=== PATIENT | female | born 1980 | race Caucasian/White ===

== ENCOUNTER 2017-11-20 18:30 | Emergency (ER) | payer OTHER ==
[2017-11-20] MEDS ORDERED: SODIUM CHLORIDE 0.9% 1,000 ML IV STA ×2 (18:50)
[2017-11-20 19:16] LABS: Basophils % (A) 0 %; Eosinophils # (A) 0.3 k/uL (0-0.7); Eosinophils % (A) 3 %; HCT 37.4 % (34.0-46.0); HGB 12.7 gm/dL (11.4-16.0); Lymphocytes # (A) 3.4 k/uL (1.0-4.8); Lymphocytes % (A) 32 %; MCH 27.6 pg (25.0-35.0); MCHC 33.8 g/dL (31.0-37.0); MCV 81.6 fL (80.0-100.0); Mean Platelet Volume 7.1; Monocytes # (A) 0.4 k/uL (0-1.0); Monocytes % (A) 4 %; Neutrophils # (A) 6.5 k/uL (1.3-7.7); Neutrophils % (A) 60 %; Platelet Count 359 k/uL (150-450); RBC 4.58 m/uL (3.80-5.40); RDW 13.9 % (11.5-15.5); WBC 10.7 k/uL (3.8-10.6)
[2017-11-20 19:23] LABS: ALT 19 U/L (9-52); AST 25 U/L (14-36); Albumin 4.3 g/dL (3.5-5.0); Alkaline Phosphatase 100 U/L (38-126); Amylase 57 U/L (30-110); Anion Gap 12 mmol/L; Blood Urea Nitrogen 15 mg/dL (7-17); Calcium 9.7 mg/dL (8.4-10.2); Carbon Dioxide 21 mmol/L (22-30); Chloride 108 mmol/L (98-107); Glucose 90 mg/dL (74-99); Lipase 160 U/L (23-300); Sodium 141 mmol/L (137-145); Total Bilirubin 0.6 mg/dL (0.2-1.3)
--- NOTE | 2017-11-20 19:47 | ED ---
Abdominal Pain HPI - General Chief Complaint: Abdominal Pain Stated Complaint: female gu Time Seen by Provider: 11/20/17 18:41 Source: patient, RN notes reviewed, old records reviewed Mode of arrival: ambulatory Limitations: no limitations - History of Present Illness Initial Comments: 29-year-old female presents return to complain of vaginal bleeding for the past 2 days. She states she's been having slow vaginal bleeding for the past month. Patient states that she has had no fevers or chills. She denies any other major complaints this time. Patient states that she has had some lower abdominal cramping and pain. - Related Data Previous Rx's Medication Instructions Recorded Ferrous Sulfate [Iron] 325 mg PO DAILY #30 tablet 11/20/17 Allergies Allergy/AdvReac Type Severity Reaction Status Date / Time No Known Allergies Allergy Verified 11/20/17 19:30 Review of Systems ROS Statement: Those systems with pertinent positive or pertinent negative responses have been documented in the HPI. ROS Other: All systems not noted in ROS Statement are negative. Past Medical History Past Medical History: No Reported History History of Any Multi-Drug Resistant Organisms: None Reported Past Surgical History: Section, Ear Surgery Past Psychological History: No Psychological Hx Reported Smoking Status: Never smoker Past Alcohol Use History: None Reported Past Drug Use History: None Reported General Exam - General Exam Comments Initial Comments: Pleasant 37 year old female, no distress. Room 10. Alert and oriented. Limitations: no limitations General appearance: alert, in no apparent distress Head exam: Present: atraumatic, normocephalic, normal inspection Eye exam: Present: normal appearance, PERRL, EOMI. Absent: scleral icterus, conjunctival injection, periorbital swelling ENT exam: Present: normal exam, mucous membranes moist Neck exam: Present: normal inspection. Absent: tenderness, meningismus, lymphadenopathy Respiratory exam: Present: normal lung sounds bilaterally. Absent: respiratory distress, wheezes, rales, rhonchi, stridor Cardiovascular Exam: Present: regular rate, normal rhythm, normal heart sounds. Absent: systolic murmur, diastolic murmur, rubs, gallop, clicks GI/Abdominal exam: Present: soft, normal bowel sounds. Absent: distended, tenderness, guarding, rebound, rigid External exam: Present: normal external exam Speculum exam: Present: vaginal bleeding (moderate vaginal bleeding. ). Absent : normal speculum exam By manual exam: Present: normal by manual exam Extremities exam: Present: normal inspection, full ROM, normal capillary refill. Absent: tenderness, pedal edema, joint swelling, calf tenderness Back exam: Present: normal inspection Neurological exam: Present: alert, oriented X3, CN II-XII intact Psychiatric exam: Present: normal affect, normal mood Skin exam: Present: warm, dry, intact, normal color. Absent: rash Course Vital Signs 11/20/17 11/20/17 18:35 21:30 Temperature 98.2 F 97 F L Pulse Rate 83 67 Respiratory 20 18 Rate Blood Pressure 153/92 146/74 O2 Sat by Pulse 98 97 Oximetry Medical Decision Making - Medical Decision Making 37-year-old female complains of that Lower abdominal cramping and heavy vaginal bleeding for the past two days. She's had intermittent bleeding for the past month. At this time she does have a moderate amount of blood on pelvic exam. No significant adnexal tenderness. Patient's lab work shows no signs of significant anemia hemoglobin is stable. Compeleted a do a transvaginal ultrasound which was negative for fibroid or acute process.Discuss the patient needs a follow up with PCP and [employer]. Will start the patient on iron supplements. All questions answered. - Lab Data Result diagrams: 11/20/17 18:55 11/20/17 18:55 Lab Results 11/20/17 11/20/17 11/20/17 Range/Units 18:55 18:55 18:55 WBC (3.8-10.6) k/uL RBC (3.80-5.40) m/uL Hgb (11.4-16.0) gm/dL Hct (34.0-46.0) % MCV (80.0-100.0) fL MCH (25.0-35.0) pg MCHC (31.0-37.0) g/dL RDW (11.5-15.5) % Plt Count (150-450) k/uL Neutrophils % % Lymphocytes % % Monocytes % % Eosinophils % % Basophils % % Neutrophils # (1.3-7.7) k/uL Lymphocytes # (1.0-4.8) k/uL Monocytes # (0-1.0) k/uL Eosinophils # (0-0.7) k/uL Basophils # (0-0.2) k/uL PT 9.6 (9.0-12.0) sec INR 1.0 (<1.2) APTT 22.6 (22.0-30.0) sec Sodium 141 (137-145) mmol/L Potassium 4.0 (3.5-5.1) mmol/L Chloride 108 H (98-107) mmol/L Carbon Dioxide 21 L (22-30) mmol/L Anion Gap 12 mmol/L BUN 15 (7-17) mg/dL Creatinine 0.85 (0.52-1.04) mg/dL Est GFR (CKD-EPI)AfAm >90 (>60 ml/min/1.73 sqM) Est GFR (CKD-EPI)NonAf 88 (>60 ml/min/1.73 sqM) Glucose 90 (74-99) mg/dL Calcium 9.7 (8.4-10.2) mg/dL Total Bilirubin 0.6 (0.2-1.3) mg/dL AST 25 (14-36) U/L ALT 19 (9-52) U/L Alkaline Phosphatase 100 (38-126) U/L Total Protein 8.0 (6.3-8.2) g/dL Albumin 4.3 (3.5-5.0) g/dL Amylase 57 (30-110) U/L Lipase 160 (23-300) U/L Urine Color Urine Appearance (Clear) Urine pH (5.0-8.0) Ur Specific [place] (1.001-1.035) Urine Protein (Negative) Urine Glucose (UA) (Negative) Urine Ketones (Negative) Urine Blood (Negative) Urine Nitrite (Negative) Urine Bilirubin (Negative) Urine Urobilinogen (<2.0) mg/dL Ur Leukocyte Esterase (Negative) Urine RBC (0-5) /hpf Ur Squamous Epith Cells (0-4) /hpf Urine Mucus (None) /hpf Urine HCG, Qual (Not Detectd) Blood Type O Positive Blood Type Recheck No Antibody Screen NEGATIVE Spec Expiration Date 11/23/2017235411/20/17 11/20/17 11/20/17 Range/Units 18:55 20:50 20:50 WBC 10.7 H (3.8-10.6) k/uL RBC 4.58 (3.80-5.40) m/uL Hgb 12.7 (11.4-16.0) gm/dL Hct 37.4 (34.0-46.0) % MCV 81.6 (80.0-100.0) fL MCH 27.6 (25.0-35.0) pg MCHC 33.8 (31.0-37.0) g/dL RDW 13.9 (11.5-15.5) % Plt Count 359 (150-450) k/uL Neutrophils % 60 % Lymphocytes % 32 % Monocytes % 4 % Eosinophils % 3 % Basophils % 0 % Neutrophils # 6.5 (1.3-7.7) k/uL Lymphocytes # 3.4 (1.0-4.8) k/uL Monocytes # 0.4 (0-1.0) k/uL Eosinophils # 0.3 (0-0.7) k/uL Basophils # 0.0 (0-0.2) k/uL PT (9.0-12.0) sec INR (<1.2) APTT (22.0-30.0) sec Sodium (137-145) mmol/L Potassium (3.5-5.1) mmol/L Chloride (98-107) mmol/L Carbon Dioxide (22-30) mmol/L Anion Gap mmol/L BUN (7-17) mg/dL Creatinine (0.52-1.04) mg/dL Est GFR (CKD-EPI)AfAm (>60 ml/min/1.73 sqM) Est GFR (CKD-EPI)NonAf (>60 ml/min/1.73 sqM) Glucose (74-99) mg/dL Calcium (8.4-10.2) mg/dL Total Bilirubin (0.2-1.3) mg/dL AST (14-36) U/L ALT (9-52) U/L Alkaline Phosphatase (38-126) U/L Total Protein (6.3-8.2) g/dL Albumin (3.5-5.0) g/dL Amylase (30-110) U/L Lipase (23-300) U/L Urine Color Light Red Urine Appearance Clear (Clear) Urine pH 5.5 (5.0-8.0) Ur Specific [place] 1.025 (1.001-1.035) Urine Protein Trace H (Negative) Urine Glucose (UA) Negative (Negative) Urine Ketones Negative (Negative) Urine Blood Large H (Negative) Urine Nitrite Negative (Negative) Urine Bilirubin Negative (Negative) Urine Urobilinogen <2.0 (<2.0) mg/dL Ur Leukocyte Esterase Small H (Negative) Urine RBC >182 H (0-5) /hpf Ur Squamous Epith Cells 1 (0-4) /hpf Urine Mucus Rare H (None) /hpf Urine HCG, Qual Not Detected (Not Detectd) Blood Type Blood Type Recheck Antibody Screen Spec Expiration Date - Radiology Data Radiology results: report reviewed Normal transvaginal pelvic sonogram. No adnexal masses or free fluid. No evidence of ovarian torsion noted. Disposition Clinical Impression: Abnormal uterine bleeding Disposition: HOME SELF-CARE Condition: Good Instructions: Dysfunctional Uterine Bleeding (ED) Additional Instructions: Patient is follow-up with primary care physician Dr. Wren. Return to the emergency department if any alarming signs or symptoms occur. Prescriptions: Ferrous Sulfate [Iron] 325 mg PO DAILY #30 tablet Is patient prescribed a controlled substance at d/c from ED?: No Referrals: Kosta Phillips DO [Doctor of Osteopathic Medicine] - 1-2 days None,Stated [Primary Care Provider] - 1-2 days Tim Mcgrath MD [REFERRING] - 1-2 days Time of Disposition: 21:14
[2017-11-20 19:58] LABS: Partial Thromboplastin Time 22.6 sec (22.0-30.0); Prothrombin Time 9.6 sec (9.0-12.0)
--- NOTE | 2017-11-20 20:34 | US ---
EXAMINATION TYPE: US transvaginal DATE OF EXAM: 11/20/2017 COMPARISON: NONE CLINICAL HISTORY: Pain. Abnormal bleeding since September heavy with clots. TECHNIQUE: Transvaginal (TV). EXAM MEASUREMENTS: Uterus: 9.4 x 6.0 x 8.4 cm Endometrial Stripe: 1.2 cm Right Ovary: 3.2 x 2.3 x 2.8 cm Left Ovary: 3.1 x 2.2 x 2.0 cm 1. Uterus: Retroverted wnl 2. Endometrium: wnl 3. Right Ovary: wnl 4. Left Ovary: wnl Spectral, color and waveform doppler imaging shows good arterial and venous flow within the ovaries ; there is no evidence for ovarian torsion. 5. Bilateral Adnexa: wnl 6. Posterior cul-de-sac: wnl IMPRESSION: Normal transvaginal pelvic sonogram. No adnexal mass or free fluid. No evidence of ovaria n torsion.
[2017-11-20 21:04] LABS: Appearance,Urine Clear (Clear); Bilirubin,Urine Negative (Negative); Blood,Urine Large (Negative); Color,Urine Light Red; Glucose,Urine (UA) Negative (Negative); Ketones,Urine Negative (Negative); Leukocyte Esterase,Urine Small (Negative); Mucus,Urine Rare /hpf; Nitrite,Urine Negative (Negative); PH, Urine 5.5 (5.0-8.0); Protein,Urine Trace (Negative); RBC,Urine >182 /hpf (0-5); Specific Gravity,Urine 1.025 (1.001-1.035); Squamous Epithelial Cell,Urine 1 /hpf (0-4); Urobilinogen,Urine <2.0 mg/dL (<2.0)
[2017-11-20 21:33] VITALS: BP 146/74; PULSE 67; RESP 18; TEMP 97
== END 2017-11-20 21:30 | disposition home or self-care (01) ==
LOC: EC 18:30
DX: N93.8 Other specified abnormal uterine and vaginal bleeding (principal); R10.30 Lower abdominal pain, unspecified
CPT/HCPCS: 36415; 76830; 80053; 81001; 81025; 82150; 83690; 85025; 85610; 85730; 86850; 86900; 86901; 93975; 96360; 96361; 99284

== ENCOUNTER → 2018-07-22 | Outpatient (CLI) | payer OTHER ==
--- NOTE | 2018-07-23 08:49 | US ---
EXAMINATION TYPE: US transvaginal DATE OF EXAM: 07/22/2018 COMPARISON: NONE CLINICAL HISTORY: N92.0 MENORRHAGIA. TECHNIQUE: Transvaginal (TV). Date of LMP: 07/08/18 Last LMP lasted 3 weeks. Prior to that is last one lasted months. EXAM MEASUREMENTS: Uterus: 9.2 x 5.1 x 6.8cm Endometrial Stripe: 1.2cm Right Ovary: 2.7 x 2.1 x 1.7cm Left Ovary: 2.3 x 1.9 x 1.5cm 1. Uterus: heterogeneous 2. Endometrium: hyperechoic area in the endometrium measuring 1.2 x 0.5 x 1.3cm and possibly contigu ous second hyperechoic area measuring 0.5 x 0.4 x 0.5cm with a punctate focus of internal vascular fl ow. These are seen at the junction of the endometrium and myometrium although. A slightly impressing on the endometrium such as as on image 18/32. 3. Right Ovary: wnl 4. Left Ovary: wnl 5. Bilateral Adnexa: wnl 6. Posterior cul-de-sac: wnl IMPRESSION: Hyperechoic foci at the junction of the endometrium and myometrium with a punctate focus of internal vascular flow. Sonographic characteristics raise suspicion for an endometrial polyp or ma ss. Alternatively atypical leiomyoma is possible. Further evaluation with sonohysterogram could be pe rformed, pelvic MRI or direct visualization.
== END | disposition home or self-care (01) ==
LOC: RADUSWWP 16:16
PROVIDERS: ATTEND Internal Medicine
DX: N85.8 Other specified noninflammatory disorders of uterus (principal); N92.0 Excessive and frequent menstruation with regular cycle
CPT/HCPCS: 76830

== ENCOUNTER 2020-08-30 19:56 | Observation (INO) | payer OTHER ==
[2020-08-30] MEDS ORDERED: ONDANSETRON 4 MG/2 ML VIAL IVP STA (20:18)
[2020-08-30] MEDS ORDERED: MORPHINE SULFATE 4 MG/ML SYRINGE IV STA (20:18)
[2020-08-30] MEDS ORDERED: SODIUM CHLORIDE 0.9% 1,000 ML IV STA (20:18)
[2020-08-30 21:10] LABS: ALT 296 U/L (4-34); AST 396 U/L (14-36); African American GFR (CKD) >90 (>60 ml/min/1.73 sqM); Albumin 4.3 g/dL (3.5-5.0); Alkaline Phosphatase 239 U/L (38-126); Anion Gap 9 mmol/L; Blood Urea Nitrogen 13 mg/dL (7-17); Calcium 9.3 mg/dL (8.4-10.2); Carbon Dioxide 23 mmol/L (22-30); Chloride 107 mmol/L (98-107); Glucose 133 mg/dL (74-99); Lipase 123 U/L (23-300); Non-African American GFR(CKD) >90 (>60 ml/min/1.73 sqM); Sodium 139 mmol/L (137-145); Total Protein 7.9 g/dL (6.3-8.2)
[2020-08-30 21:13] LABS: Appearance,Urine Cloudy (Clear); Bacteria,Urine Many /hpf; Bilirubin,Urine Negative (Negative); Blood,Urine Small (Negative); Budding Yeast,Urine Occasional /hpf; Calcium Oxalate Crystals,Urine Many /hpf; Color,Urine Yellow; Glucose,Urine (UA) Negative (Negative); Ketones,Urine Negative (Negative); Leukocyte Esterase,Urine Large (Negative); Mucus,Urine Many /hpf; Nitrite,Urine Negative (Negative); PH, Urine 5.5 (5.0-8.0); Protein,Urine Trace (Negative); RBC,Urine 19 /hpf (0-5); Specific Gravity,Urine 1.029 (1.001-1.035); Squamous Epithelial Cell,Urine 18 /hpf (0-4)
[2020-08-30 21:27] LABS: Potassium 4.5 mmol/L (3.5-5.1)
--- NOTE | 2020-08-30 21:54 | US ---
EXAMINATION TYPE: US abdomen limited DATE OF EXAM: 08/30/2020 COMPARISON: NONE CLINICAL HISTORY: RUQ pain, positive gamez's. RUQ pain, positive Gamez's sign. EXAM MEASUREMENTS: Liver Length: 20.16 cm Gallbladder Wall: 0.19 cm CBD: 1.10 cm Right Kidney: 11.4 x 6.2 x 4.9 cm No dilated ducts. Limited due to gas and patient body habitus. Pancreas: Limited visibility of tail. Liver: Appears enlarged and coarse in echotexture. Increased echogenicity. Complex area seen within the right lobe: 2.1 x 2.7 x 1.8 cm. Gallbladder: Appears distended measuring 12.3 cm in length. Multiple hyperechoic foci with posterior shadowing seen within the gallbladder. Evidence for sonographic Gamez's sign: Yes CBD: Appears dilated. Right Kidney: Hyperechoic focus seen within the lower pole: 0.5 x 0.4 x 0.3 cm. Probable column of [place] seen (hypoechoic/isoechoic, indistinct area seen anteriorly). IMPRESSION: Multiple gallstones. No dilated ducts. Intrahepatic bile ducts are not dilated. The common bile duct is large and consistent with gallbladder dysfunction. There is 2.7 cm cyst in the anterior liver.
[2020-08-30] MEDS ORDERED: PIPERACILLIN-TAZOBACTAM 3.375 GM in SODIUM CHLORIDE 0.9% 100 ML IVPB ONE (22:00)
[2020-08-30 22:06] LABS: Basophils % (A) 0 %; Eosinophils # (A) 0.2 k/uL (0-0.7); Eosinophils % (A) 2 %; HCT 34.5 % (34.0-46.0); HGB 11.3 gm/dL (11.4-16.0); Lymphocytes # (A) 1.9 k/uL (1.0-4.8); Lymphocytes % (A) 21 %; MCH 25.3 pg (25.0-35.0); MCHC 32.7 g/dL (31.0-37.0); MCV 77.5 fL (80.0-100.0); Mean Platelet Volume 10.1; Microcytosis Slight; Monocytes # (A) 0.6 k/uL (0-1.0); Monocytes % (A) 6 %; Neutrophils # (A) 6.3 k/uL (1.3-7.7); Neutrophils % (A) 70 %; Platelet Count 369 k/uL (150-450); RBC 4.45 m/uL (3.80-5.40); RDW 15.8 % (11.5-15.5); WBC 9.1 k/uL (3.8-10.6)
--- NOTE | 2020-08-30 22:24 | ED ---
Abdominal Pain HPI - General Chief Complaint: Abdominal Pain Stated Complaint: ABD pain Time Seen by Provider: 08/30/20 20:00 Source: patient Mode of arrival: ambulatory Limitations: no limitations - History of Present Illness Initial Comments: 40 year-old male patient presents to the emergency department today for evaluation of right upper quadrant pain radiating through to her back. Patient states his symptoms started 3 days ago and seemed to be worsening. States she has been nauseated, no vomiting. Denies any fever or chills. Denies any histor y of abdominal surgery. Denies any chest pain or shortness of breath. Denies any pain in the shoulder. Denies any hematuria, dysuria, urinary frequency, urinary urgency. Patient denies any recent rash, cough, shortness of breath, chest pain, numbness, tingling, dizziness, weakness, headache, visual changes, or any other complaints. - Related Data Home Medications Medication Instructions Recorded Confirmed Cephalexin [Keflex] 500 mg PO Q6HR 08/30/20 08/30/20 Ibuprofen [Motrin Ib] 800 mg PO Q8H PRN 08/30/20 08/30/20 Phentermine HCl 37.5 mg PO DAILY 08/30/20 08/30/20 Sertraline HCl [Zoloft] 50 mg PO DAILY 08/30/20 08/30/20 Allergies Allergy/AdvReac Type Severity Reaction Status Date / Time No Known Allergies Allergy Verified 08/30/20 22:01 Review of Systems ROS Statement: Those systems with pertinent positive or pertinent negative responses have been documented in the HPI. ROS Other: All systems not noted in ROS Statement are negative. Past Medical History Past Medical History: No Reported History History of Any Multi-Drug Resistant Organisms: None Reported Past Surgical History: Section, Ear Surgery Past Psychological History: No Psychological Hx Reported Past Alcohol Use History: None Reported Past Drug Use History: None Reported General Exam Limitations: no limitations General appearance: alert, in no apparent distress, other (Is a well-developed, well-nourished adult female patient in no acute distress. Vital signs upon presentation are temperature 97.8F, pulse 69, respirations 18, blood pressure 148/97, pulse ox 98% on room air.) ENT exam: Present: normal exam, normal oropharynx, mucous membranes moist Respiratory exam: Present: normal lung sounds bilaterally. Absent: respiratory distress, wheezes, rales, rhonchi, stridor Cardiovascular Exam: Present: regular rate, normal rhythm, normal heart sounds. Absent: systolic murmur, diastolic murmur, rubs, gallop, clicks GI/Abdominal exam: Present: soft, tenderness (Right upper quadrant tenderness.), normal bowel sounds, other (Positive Gamez's). Absent: distended, guarding, rebound, rigid Neurological exam: Present: alert, oriented X3, CN II-XII intact Psychiatric exam: Present: normal affect, normal mood Skin exam: Present: warm, dry, intact, normal color. Absent: rash Course Vital Signs 08/30/20 08/30/20 08/30/20 19:57 21:49 23:10 Temperature 97.8 F 97.9 F 97.9 F Pulse Rate 69 70 79 Respiratory 18 18 18 Rate Blood Pressure 148/97 151/92 142/88 O2 Sat by Pulse 98 100 100 Oximetry Medical Decision Making - Medical Decision Making 40-year-old female patient presents to the emergency department for right upper quadrant abdominal pain radiating to back. Physical examination did reveal right upper quadrant tenderness with positive Gamez sign. She is afebrile, vital signs. Labs reviewed and does reveal elevated liver enzymes. Elevated alk phos. Ultrasound was obtained and did reveal gallstones, distended g allbladder, dilated common bile duct, and positive Gamez sign. I did discuss the case with the surgeon Dr. Frye who accepted the patient. She is to be nothing by mouth at midnight. [facility] staff at 6:00 in the morning. We will provide nausea medication and pain medication. Antibiotics given. She is agreeable with this plan. Case discussed with my attending Dr. Shay. - Lab Data Result diagrams: 08/30/20 20:34 08/30/20 20:34 Lab Results 08/30/20 08/30/20 08/30/20 Range/Units 20:34 20:34 20:34 WBC 9.1 (3.8-10.6) k/uL RBC 4.45 (3.80-5.40) m/uL Hgb 11.3 L (11.4-16.0) gm/dL Hct 34.5 (34.0-46.0) % MCV 77.5 L (80.0-100.0) fL MCH 25.3 (25.0-35.0) pg MCHC 32.7 (31.0-37.0) g/dL RDW 15.8 H (11.5-15.5) % Plt Count 369 (150-450) k/uL MPV 10.1 Neutrophils % 70 % Lymphocytes % 21 % Monocytes % 6 % Eosinophils % 2 % Basophils % 0 % Neutrophils # 6.3 (1.3-7.7) k/uL Lymphocytes # 1.9 (1.0-4.8) k/uL Monocytes # 0.6 (0-1.0) k/uL Eosinophils # 0.2 (0-0.7) k/uL Basophils # 0.0 (0-0.2) k/uL Microcytosis Slight Sodium 139 (137-145) mmol/L Potassium 4.5 (3.5-5.1) mmol/L Chloride 107 (98-107) mmol/L Carbon Dioxide 23 (22-30) mmol/L Anion Gap 9 mmol/L BUN 13 (7-17) mg/dL Creatinine 0.67 (0.52-1.04) mg/dL Est GFR (CKD-EPI)AfAm >90 (>60 ml/min/1.73 sqM) Est GFR (CKD-EPI)NonAf >90 (>60 ml/min/1.73 sqM) Glucose 133 H (74-99) mg/dL Plasma Lactic Acid Yaakov (0.7-2.0) mmol/L Calcium 9.3 (8.4-10.2) mg/dL Total Bilirubin 1.0 (0.2-1.3) mg/dL AST 396 H (14-36) U/L ALT 296 H (4-34) U/L Alkaline Phosphatase 239 H (38-126) U/L Total Protein 7.9 (6.3-8.2) g/dL Albumin 4.3 (3.5-5.0) g/dL Lipase 123 (23-300) U/L Urine Color Yellow Urine Appearance Cloudy H (Clear) Urine pH 5.5 (5.0-8.0) Ur Specific [place] 1.029 (1.001-1.035) Urine Protein Trace H (Negative) Urine Glucose (UA) Negative (Negative) Urine Ketones Negative (Negative) Urine Blood Small H (Negative) Urine Nitrite Negative (Negative) Urine Bilirubin Negative (Negative) Urine Urobilinogen 6.0 (<2.0) mg/dL Ur Leukocyte Esterase Large H (Negative) Urine RBC 19 H (0-5) /hpf Ur Squamous Epith Cells 18 H (0-4) /hpf Calcium Oxalate Crystal Many H (None) /hpf Urine Bacteria Many H (None) /hpf Urine Mucus Many H (None) /hpf Urine Yeast (Budding) Occasional H (None) /hpf 08/30/20 Range/Units 20:34 WBC (3.8-10.6) k/uL RBC (3.80-5.40) m/uL Hgb (11.4-16.0) gm/dL Hct (34.0-46.0) % MCV (80.0-100.0) fL MCH (25.0-35.0) pg MCHC (31.0-37.0) g/dL RDW (11.5-15.5) % Plt Count (150-450) k/uL MPV Neutrophils % % Lymphocytes % % Monocytes % % Eosinophils % % Basophils % % Neutrophils # (1.3-7.7) k/uL Lymphocytes # (1.0-4.8) k/uL Monocytes # (0-1.0) k/uL Eosinophils # (0-0.7) k/uL Basophils # (0-0.2) k/uL Microcytosis Sodium (137-145) mmol/L Potassium (3.5-5.1) mmol/L Chloride (98-107) mmol/L Carbon Dioxide (22-30) mmol/L Anion Gap mmol/L BUN (7-17) mg/dL Creatinine (0.52-1.04) mg/dL Est GFR (CKD-EPI)AfAm (>60 ml/min/1.73 sqM) Est GFR (CKD-EPI)NonAf (>60 ml/min/1.73 sqM) Glucose (74-99) mg/dL Plasma Lactic Acid Yaakov 0.8 (0.7-2.0) mmol/L Calcium (8.4-10.2) mg/dL Total Bilirubin (0.2-1.3) mg/dL AST (14-36) U/L ALT (4-34) U/L Alkaline Phosphatase (38-126) U/L Total Protein (6.3-8.2) g/dL Albumin (3.5-5.0) g/dL Lipase (23-300) U/L Urine Color Urine Appearance (Clear) Urine pH (5.0-8.0) Ur Specific [place] (1.001-1.035) Urine Protein (Negative) Urine Glucose (UA) (Negative) Urine Ketones (Negative) Urine Blood (Negative) Urine Nitrite (Negative) Urine Bilirubin (Negative) Urine Urobilinogen (<2.0) mg/dL Ur Leukocyte Esterase (Negative) Urine RBC (0-5) /hpf Ur Squamous Epith Cells (0-4) /hpf Calcium Oxalate Crystal (None) /hpf Urine Bacteria (None) /hpf Urine Mucus (None) /hpf Urine Yeast (Budding) (None) /hpf - Radiology Data Radiology results: report reviewed, image reviewed Ultrasound of the right upper quadrant was obtained. Report was reviewed in its entirety. Impression by Dr. Campos shows multiple gallstones. No dilated ducts. Tympanic mild are not dilated. The common bile duct is large and consistent with bladder dysfunction. There is 2.7 cm cyst in the anterior lower. There is positive Gamez's sign. Gallbladder appears dilated and distended measuring 12.3 cm in length. Disposition Clinical Impression: Cholelithiasis, Cholecystitis Disposition: ADMITTED IP TO THIS [facility] Condition: Serious Decision to Admit Reason: Admit from EC Decision Date: 08/30/20 Decision Time: 22:30
[2020-08-30] MEDS ORDERED: MORPHINE SULFATE 4 MG/ML SYRINGE IV PRN (22:26)
[2020-08-30] MEDS ORDERED: NALOXONE 0.4 MG/ML 1 ML VIAL IV PRN (22:26)
[2020-08-30] MEDS ORDERED: ONDANSETRON 4 MG/2 ML VIAL IVP PRN (22:26)
[2020-08-30] MEDS: SODIUM CHLORIDE 0.9% 1,000 ML IV SCH (23:21)
[2020-08-31] MEDS: PIPERACILLIN-TAZOBACTAM 3.375 GM in SODIUM CHLORIDE 0.9% 100 ML IVPB SCH ×3 (06:14→23:31)
[2020-08-31 06:32] LABS: ALT 319 U/L (4-34); AST 479 U/L (14-36); African American GFR (CKD) >90 (>60 ml/min/1.73 sqM); Albumin 3.3 g/dL (3.5-5.0); Alkaline Phosphatase 233 U/L (38-126); Anion Gap 5 mmol/L; Blood Urea Nitrogen 8 mg/dL (7-17); Calcium 8.8 mg/dL (8.4-10.2); Carbon Dioxide 23 mmol/L (22-30); Chloride 111 mmol/L (98-107); Glucose 110 mg/dL (74-99); Non-African American GFR(CKD) >90 (>60 ml/min/1.73 sqM); Potassium 4.5 mmol/L (3.5-5.1); Sodium 139 mmol/L (137-145); Total Bilirubin 1.2 mg/dL (0.2-1.3); Total Protein 6.3 g/dL (6.3-8.2)
--- NOTE | 2020-08-31 09:37 | P.CONS ---
History of Present Illness - Reason for Consult Consult date: 08/31/20 Elevated LFTs Requesting physician: Jagjit Frye - Chief Complaint Right upper quadrant pain - History of Present Illness This is a 40-year-old white female who presented to the emergency department yesterday evening with complaints of right upper quadrant pain radiating to her back. Patient states that the pain started on Saturday in the evening after eating dinner, resolved but then returned the next couple days. Yesterday the pain was very intense, associated with nausea but no vomiting and she presented to the emergency department. The patient denies any past medical history. Denies any previous liver disease or known elevation in her liver enzymes. No previous problems with her gallbladder. On admission labs were WBC 9, hemoglobin 11.3, hematocrit 34.5, platelet count 369,000, total bilirubin 1.0, alkaline phosphatase 239, AST 396, ALT 296. Today's labs there was a slight increase in her LFTs, total bilirubin 1.2, alkaline phosphatase 233, AST 479, ALT 319. As part of her workup she had an ultrasound of the gallbladder showing multiple gallstones, no dilated ducts, intrahepatic duct not dilated. CBD large and consistent with gallbladder dysfunction. CBD measuring 1.10 cm. Liver appears enlarged and coarse echotexture. Increase echogenicity complex area seen within the right lobe measuring 2.1 x 2.7 x 1.8 cm and reported as a 2.7 cm anterior cyst. She states she did recently lose approximately 25 pounds which was intentional. Gen. surgery is on consult plan is for cholecystectomy Review of Systems REVIEW OF SYSTEMS: CARDIOPULMONARY: No chest pain or shortness of breath. Gastrointestinal: Right upper quadrant pain. Nausea, no vomiting. No hematemesis, coffee-ground emesis. No rectal bleeding, or melena. GENITOURINARY: No dysuria or hematuria. MUSCULOSKELETAL: Reports normal range of motion., Joint pain. SKIN: No rashes. No jaundice. ENDOCRINE: No chills, fevers. No excessive weight gain or loss. No polydipsia or polyuria. PSYCHIATRIC: Unremarkable. NEUROLOGY: No change in mental status. Denies dizziness, headache. ENT: Vision unremarkable. CONSTITUTIONAL: No recent weight loss. No fever, chills, night sweats. Past Medical History Past Medical History: No Reported History History of Any Multi-Drug Resistant Organisms: None Reported Past Surgical History: Section, Ear Surgery Additional Past Surgical History / Comment(s): D&C 2019 Past Anesthesia/Blood Transfusion Reactions: No Reported Reaction Past Psychological History: Anxiety Additional Psychological History / Comment(s): ADD Smoking Status: Never smoker Past Alcohol Use History: None Reported Past Drug Use History: None Reported - Past Family History Mother Family Medical History: Thyroid Disorder Additional Family Medical History / Comment(s): Low blood sugar Medications and Allergies Home Medications Medication Instructions Recorded Confirmed Type Cephalexin [Keflex] 500 mg PO Q6HR 08/30/20 08/30/20 History Ibuprofen [Motrin Ib] 800 mg PO Q8H PRN 08/30/20 08/30/20 History Phentermine HCl 37.5 mg PO DAILY 08/30/20 08/30/20 History Sertraline HCl [Zoloft] 50 mg PO DAILY 08/30/20 08/30/20 History Allergies Allergy/AdvReac Type Severity Reaction Status Date / Time No Known Allergies Allergy Verified 08/30/20 22:01 Physical Exam Vitals: Vital Signs Temp Pulse Pulse Resp BP BP Pulse Ox 08/31/20 07:55 97.9 F 74 16 114/74 100 08/31/20 02:00 98.2 F 72 16 125/84 98 08/30/20 23:54 98.2 F 69 18 127/88 99 08/30/20 23:10 97.9 F 79 18 142/88 100 08/30/20 21:49 97.9 F 70 18 151/92 100 08/30/20 19:57 97.8 F 69 18 148/97 98 Intake and Output 08/30/20 08/31/20 08/31/20 22:59 06:59 14:59 Other: # Voids 2 Weight 108.862 kg 108.862 kg General appearance: The patient is alert, oriented, appears in no acute distress. HET: Head is normocephalic and atraumatic. Conjunctiva pink. Sclera anicteric. Neck: Supple without lymphadenopathy. Trachea midline. Heart: S1 S2. Regular rate and rhythm. Lungs: Clear to auscultation. Abdomen: Soft, right upper quadrant tenderness, nondistended with bowel sounds. No guarding or rigidity. Skin: No rashes. No jaundice. Extremities: Normal skin color and turgor. No pedal edema. Neurological: No focal deficits. Alert and oriented 3.. Results CBC & Chem 7: 08/30/20 20:34 08/31/20 05:49 Labs: Abnormal Lab Results - Last 24 Hours (Table) 08/30/20 08/30/20 08/30/20 Range/Units 20:34 20:34 20:34 Hgb 11.3 L (11.4-16.0) gm/dL MCV 77.5 L (80.0-100.0) fL RDW 15.8 H (11.5-15.5) % Chloride (98-107) mmol/L Glucose 133 H (74-99) mg/dL AST 396 H (14-36) U/L ALT 296 H (4-34) U/L Alkaline Phosphatase 239 H (38-126) U/L Albumin (3.5-5.0) g/dL Urine Appearance Cloudy H (Clear) Urine Protein Trace H (Negative) Urine Blood Small H (Negative) Ur Leukocyte Esterase Large H (Negative) Urine RBC 19 H (0-5) /hpf Ur Squamous Epith Cells 18 H (0-4) /hpf Calcium Oxalate Crystal Many H (None) /hpf Urine Bacteria Many H (None) /hpf Urine Mucus Many H (None) /hpf Urine Yeast (Budding) Occasional H (None) /hpf 08/31/20 Range/Units 05:49 Hgb (11.4-16.0) gm/dL MCV (80.0-100.0) fL RDW (11.5-15.5) % Chloride 111 H (98-107) mmol/L Glucose 110 H (74-99) mg/dL AST 479 H (14-36) U/L ALT 319 H (4-34) U/L Alkaline Phosphatase 233 H (38-126) U/L Albumin 3.3 L (3.5-5.0) g/dL Urine Appearance (Clear) Urine Protein (Negative) Urine Blood (Negative) Ur Leukocyte Esterase (Negative) Urine RBC (0-5) /hpf Ur Squamous Epith Cells (0-4) /hpf Calcium Oxalate Crystal (None) /hpf Urine Bacteria (None) /hpf Urine Mucus (None) /hpf Urine Yeast (Budding) (None) /hpf CT scan - abdomen: report reviewed (Multiple gallstones, no dilated ducts, intrahepatic duct not dilated. CBD large and consistent with gallbladder dysfunction. Liver appears enlarged and coarse echotexture. Increase echogenicity, complex area seen within right lobe 2.1 x 2.7 x 1.8 cm reported as a 2.7 cm anterior cyst) Assessment and Plan (1) Elevated LFTs Narrative/Plan: 40-year-old who presented to the emergency department with complaints of right upper quadrant pain starting 4 days ago associated with nausea, no vomiting. Patient denies previous associated symptoms, no prior history of gallbladder disease. As part of her workup in the emergency department. Ultrasound of the gallbladder showing multiple gallstones, no dilated ducts, intrahepatic ducts aren't dilated. CBD large and consistent with gallbladder dysfunction. Also reported was liver appearing enlarged and coarse echotexture. Increase echo [place] complex area seen within the right lobe 2.1 x 2.7 x 1.8 cm. Patient denies any previous knowledge of any underlying liver disease, denies any previous knowledge of elevation of her liver function tests. Does state that she has recently lost 25 pounds, intentionally. On admission total bilirubin 1.0, alkaline phosphatase 239, AST 396, ALT 296, repeat labs today show a mild increase in total bilirubin at 1.2, alkaline phosphatase 233, AST 479, ALT 319. Patient may have underlying liver disease related to fatty liver, also need to consider possible CBD stone/obstruction. Will proceed with MRI/MRCP of the liver. Current Visit: Yes Status: Acute Code(s): R79.89 - OTHER SPECIFIED ABNORMAL FINDINGS OF BLOOD CHEMISTRY SNOMED Code(s): 518577483 (2) Right upper quadrant pain Current Visit: Yes Status: Acute Code(s): R10.11 - RIGHT UPPER QUADRANT PAIN SNOMED Code(s): 849790418 (3) Cholelithiasis Narrative/Plan: Gen. surgery on consult, plan is for cholecystectomy Current Visit: Yes Status: Acute Code(s): K80.20 - CALCULUS OF GALLBLADDER W/O CHOLECYSTITIS W/O OBSTRUCTION SNOMED Code(s): 940424418 Plan: 1. Keep nothing by mouth 2. MRI/MRCP of liver ordered 3. Repeat CMP daily 4. INR ordered for tomorrow 5. Surgical services following patient 6. Further recommendations to follow MRCP findings Thank you for this consultation, we will continue to follow Dr. Armando I agree with the dictator's note, documented as a scribe by Edith Steve.
[2020-08-31] MEDS: PANTOPRAZOLE 40 MG/10 ML VIAL IVP SCH (11:06)
[2020-08-31] MEDS: SODIUM CHLORIDE 0.9% 1,000 ML IV SCH ×2 (11:06→23:29)
--- NOTE | 2020-08-31 11:09 | P.GSHP ---
History of Present Illness H&P Date: 08/31/20 CHIEF COMPLAINT: Abdominal pain HISTORY OF PRESENT ILLNESS: This is a 40-year-old female with past medical history of depression and past surgical history of . She presents to the hospital with complaints of right upper quadrant pain that radiates to her back. She reports that the pain has been intermittent for about 4 days. [place] And she noted an increase in pain after eating chicken that is covered and cheese. Patient has been nauseated having sweats and reports having very severe right upper quadrant pain yesterday and that is what brought her into the hospital. At this time she is not complaining of any pain. She had an abdominal ultrasound completed showing multiple gallstones. No dilated ducts. Intrahepatic bile ducts are not dilated. The common bile duct is large and consistent with gallbladder dysfunction. There is 2.7 cm cyst in the anterior liver. Patient was noted to have elevated LFTs. They continue to increase. GI services on consult and they have ordered an MRCP. PAST MEDICAL HISTORY: See list. PAST SURGICAL HISTORY: See list. MEDICATIONS: See list. ALLERGIES: See list. SOCIAL HISTORY: No illicit drug use. REVIEW OF SYSTEMS: CONSTITUTIONAL: Denies fever or chills. HEENT: Denies blurred vision, vision changes, or eye pain. Denies hemoptysis CARDIOVASCULAR: Denies chest pain or pressure. RESPIRATORY: No shortness of breath. GASTROINTESTINAL: See HPI for pertinent findings HEMATOLOGIC: Denies bleeding disorders. GENITOURINARY: Denies any blood in urine or increased urinary frequency. SKIN: Denies pruitis. Denies rash. PHYSICAL EXAM: VITAL SIGNS: Reviewed GENERAL: Well-developed in no acute distress. HEENT: No sclera icterus. Extraocular movements grossly intact. Moist buccal mucosa. Head is atraumatic, normocephalic. No nasal drainage. ABDOMEN: Soft. Nondistended. Nontender NEUROLOGIC: Alert and oriented. Cranial nerves II through XII grossly intact. LABORATORY DATA: WBC 9.1 hemoglobin 11.3 platelets 369 sodium 139 potassium 4.5 creatinine 0.61 Total bilirubin 1.2 AST up from 390 6479 ALT 296 up to 319 alk phos 239 down to 233 IMAGING: abdominal ultrasound completed showing multiple gallstones. No dilated ducts. Intrahepatic bile ducts are not dilated. The common bile duct is large and consistent with gallbladder dysfunction. There is 2.7 cm cyst in the anterior liver. ASSESSMENT: 1. Right upper quadrant abdominal pain with possible cholecystitis 2. Cholelithiasis 3. Choledocholithiasis 4. Elevated LFTs PLAN: -Patient will need laparoscopic cholecystectomy -GI on consult and MRCP has been ordered. We'll await further GI recommendations -Consult medicine service for medical management -Continue IV antibiotics -Continue pain medication as needed -Continue antiemetics -GI prophylaxis Protonix and DVT prophylaxis subcu heparin Physician Digital Director note has been reviewed by physician. Signing provider agrees with the documented findings, assessment, and plan of care. Past Medical History Past Medical History: No Reported History History of Any Multi-Drug Resistant Organisms: None Reported Past Surgical History: Section, Ear Surgery Additional Past Surgical History / Comment(s): D&C 2019 Past Anesthesia/Blood Transfusion Reactions: No Reported Reaction Past Psychological History: Anxiety Additional Psychological History / Comment(s): ADD Smoking Status: Never smoker Past Alcohol Use History: None Reported Past Drug Use History: None Reported - Past Family History Mother Family Medical History: Thyroid Disorder Additional Family Medical History / Comment(s): Low blood sugar Medications and Allergies Home Medications Medication Instructions Recorded Confirmed Type Cephalexin [Keflex] 500 mg PO Q6HR 08/30/20 08/30/20 History Ibuprofen [Motrin Ib] 800 mg PO Q8H PRN 08/30/20 08/30/20 History Phentermine HCl 37.5 mg PO DAILY 08/30/20 08/30/20 History Sertraline HCl [Zoloft] 50 mg PO DAILY 08/30/20 08/30/20 History Allergies Allergy/AdvReac Type Severity Reaction Status Date / Time No Known Allergies Allergy Verified 08/30/20 22:01 Surgical - Exam Vital Signs Temp Pulse Resp BP Pulse Ox 97.8 F 69 18 148/97 98 08/30/20 19:57 08/30/20 19:57 08/30/20 19:57 08/30/20 19:57 08/30/20 19:57 Results - Labs 08/30/20 20:34 08/31/20 05:49 Abnormal Lab Results - Last 24 Hours (Table) 08/30/20 08/30/20 08/30/20 Range/Units 20:34 20:34 20:34 Hgb 11.3 L (11.4-16.0) gm/dL MCV 77.5 L (80.0-100.0) fL RDW 15.8 H (11.5-15.5) % Chloride (98-107) mmol/L Glucose 133 H (74-99) mg/dL AST 396 H (14-36) U/L ALT 296 H (4-34) U/L Alkaline Phosphatase 239 H (38-126) U/L Albumin (3.5-5.0) g/dL Urine Appearance Cloudy H (Clear) Urine Protein Trace H (Negative) Urine Blood Small H (Negative) Ur Leukocyte Esterase Large H (Negative) Urine RBC 19 H (0-5) /hpf Ur Squamous Epith Cells 18 H (0-4) /hpf Calcium Oxalate Crystal Many H (None) /hpf Urine Bacteria Many H (None) /hpf Urine Mucus Many H (None) /hpf Urine Yeast (Budding) Occasional H (None) /hpf 08/31/20 Range/Units 05:49 Hgb (11.4-16.0) gm/dL MCV (80.0-100.0) fL RDW (11.5-15.5) % Chloride 111 H (98-107) mmol/L Glucose 110 H (74-99) mg/dL AST 479 H (14-36) U/L ALT 319 H (4-34) U/L Alkaline Phosphatase 233 H (38-126) U/L Albumin 3.3 L (3.5-5.0) g/dL Urine Appearance (Clear) Urine Protein (Negative) Urine Blood (Negative) Ur Leukocyte Esterase (Negative) Urine RBC (0-5) /hpf Ur Squamous Epith Cells (0-4) /hpf Calcium Oxalate Crystal (None) /hpf Urine Bacteria (None) /hpf Urine Mucus (None) /hpf Urine Yeast (Budding) (None) /hpf Diabetes panel 08/30/20 08/31/20 Range/Units 20:34 05:49 Sodium 139 139 (137-145) mmol/L Potassium 4.5 4.5 (3.5-5.1) mmol/L Chloride 107 111 H (98-107) mmol/L Carbon Dioxide 23 23 (22-30) mmol/L BUN 13 8 (7-17) mg/dL Creatinine 0.67 0.61 (0.52-1.04) mg/dL Glucose 133 H 110 H (74-99) mg/dL Calcium 9.3 8.8 (8.4-10.2) mg/dL AST 396 H 479 H (14-36) U/L ALT 296 H 319 H (4-34) U/L Alkaline Phosphatase 239 H 233 H (38-126) U/L Total Protein 7.9 6.3 (6.3-8.2) g/dL Albumin 4.3 3.3 L (3.5-5.0) g/dL Calcium panel 08/30/20 08/31/20 Range/Units 20:34 05:49 Calcium 9.3 8.8 (8.4-10.2) mg/dL Albumin 4.3 3.3 L (3.5-5.0) g/dL Pituitary panel 08/30/20 08/31/20 Range/Units 20:34 05:49 Sodium 139 139 (137-145) mmol/L Potassium 4.5 4.5 (3.5-5.1) mmol/L Chloride 107 111 H (98-107) mmol/L Carbon Dioxide 23 23 (22-30) mmol/L BUN 13 8 (7-17) mg/dL Creatinine 0.67 0.61 (0.52-1.04) mg/dL Glucose 133 H 110 H (74-99) mg/dL Calcium 9.3 8.8 (8.4-10.2) mg/dL Adrenal panel 08/30/20 08/31/20 Range/Units 20:34 05:49 Sodium 139 139 (137-145) mmol/L Potassium 4.5 4.5 (3.5-5.1) mmol/L Chloride 107 111 H (98-107) mmol/L Carbon Dioxide 23 23 (22-30) mmol/L BUN 13 8 (7-17) mg/dL Creatinine 0.67 0.61 (0.52-1.04) mg/dL Glucose 133 H 110 H (74-99) mg/dL Calcium 9.3 8.8 (8.4-10.2) mg/dL Total Bilirubin 1.0 1.2 (0.2-1.3) mg/dL AST 396 H 479 H (14-36) U/L ALT 296 H 319 H (4-34) U/L Alkaline Phosphatase 239 H 233 H (38-126) U/L Total Protein 7.9 6.3 (6.3-8.2) g/dL Albumin 4.3 3.3 L (3.5-5.0) g/dL
--- NOTE | 2020-08-31 12:44 | P.CONS ---
History of Present Illness - Reason for Consult Choledocholithiasis - History of Present Illness Patient is pleasant [age]-year-old female came in with compensative right upper quadrant abdominal pain he started eating high fatty foods like pizza last weekend found to have cholelithiasis with multiple gallstones never had similar symptoms in the past patient doesn't have any leukocytosis doesn't have any f ever. Patient's Gamez's sign is negative patient had an ultrasound of the gallbladder which showed multiple gallstones no dilated bile duct intrahepatic bile duct is not dilated although CBD is large with gallbladder distention. CBD is about 1.1 cm patient has mildly elevated liver enzymes all the balloon is only 1.2. Patient will undergo cholecystectomy but before that need to rule out common bile duct stones since the possibility is low patient will undergo MRCP instead of ERCP further management depending on MRCP. Patient is presently on Zosyn as per general surgery. Her right upper quadrant abdominal pain is severe crampy radiating to the back presently significantly improved with morphine REVIEW OF SYSTEMS: CONSTITUTIONAL: No fever, no malaise, no fatigue. HEENT: No recent visual problems or hearing problems. Denied any sore throat. CARDIOVASCULAR: No chest pain, orthopnea, PND, no palpitations, no syncope. PULMONARY: No shortness of breath, no cough, no hemoptysis. GASTROINTESTINAL: As mentioned in HPI NEUROLOGICAL: No headaches, no weakness, no numbness. HEMATOLOGICAL: Denies any bleeding or petechiae. GENITOURINARY: Denies any burning micturition, frequency, or urgency. MUSCULOSKELETAL/RHEUMATOLOGICAL: Denies any joint pain, swelling, or any muscle pain. ENDOCRINE: Denies any polyuria or polydipsia. The rest of the 14-point review of systems is negative. PHYSICAL EXAMINATION: GENERAL: The patient is alert and oriented x3, not in any acute distress. Well developed, well nourished. HEENT: Pupils are round and equally reacting to light. EOMI. No scleral icterus. No conjunctival pallor. Normocephalic, atraumatic. No pharyngeal erythema. No t hyromegaly. CARDIOVASCULAR: S1 and S2 present. No murmurs, rubs, or gallops. PULMONARY: Chest is clear to auscultation, no wheezing or crackles. ABDOMEN: Soft, nontender, nondistended, normoactive bowel sounds. No palpable organomegaly. MUSCULOSKELETAL: No joint swelling or deformity. EXTREMITIES: No cyanosis, clubbing, or pedal edema. NEUROLOGICAL: Gross neurological examination did not reveal any focal deficits. SKIN: No rashes. Assessment and plan -Cholelithiasis: Possible cholecystectomy after MRCP or ERCP. -Possible choledocholithiasis patient will undergo ERCP -Depression: Patient will be resumed on sertraline -Elevated liver enzymes secondary to possibly passed gallstone rather than choledocholithiasis DVT prophylaxis: Lovenox Past Medical History Past Medical History: No Reported History History of Any Multi-Drug Resistant Organisms: None Reported Past Surgical History: Section, Ear Surgery Additional Past Surgical History / Comment(s): D&C 2019 Past Anesthesia/Blood Transfusion Reactions: No Reported Reaction Past Psychological History: Anxiety Additional Psychological History / Comment(s): ADD Smoking Status: Never smoker Past Alcohol Use History: None Reported Past Drug Use History: None Reported - Past Family History Mother Family Medical History: Thyroid Disorder Additional Family Medical History / Comment(s): Low blood sugar Medications and Allergies Home Medications Medication Instructions Recorded Confirmed Type Cephalexin [Keflex] 500 mg PO Q6HR 08/30/20 08/30/20 History Ibuprofen [Motrin Ib] 800 mg PO Q8H PRN 08/30/20 08/30/20 History Phentermine HCl 37.5 mg PO DAILY 08/30/20 08/30/20 History Sertraline HCl [Zoloft] 50 mg PO DAILY 08/30/20 08/30/20 History Allergies Allergy/AdvReac Type Severity Reaction Status Date / Time No Known Allergies Allergy Verified 08/30/20 22:01 Physical Exam Vitals: Vital Signs Temp Pulse Pulse Resp BP BP Pulse Ox 08/31/20 07:55 97.9 F 74 16 114/74 100 08/31/20 02:00 98.2 F 72 16 125/84 98 08/30/20 23:54 98.2 F 69 18 127/88 99 08/30/20 23:10 97.9 F 79 18 142/88 100 08/30/20 21:49 97.9 F 70 18 151/92 100 08/30/20 19:57 97.8 F 69 18 148/97 98 Intake and Output 08/30/20 08/31/20 08/31/20 22:59 06:59 14:59 Other: # Voids 2 Weight 108.862 kg 108.862 kg Results CBC & Chem 7: 08/30/20 20:34 08/31/20 05:49 Labs: Abnormal Lab Results - Last 24 Hours (Table) 08/30/20 08/30/20 08/30/20 Range/Units 20:34 20:34 20:34 Hgb 11.3 L (11.4-16.0) gm/dL MCV 77.5 L (80.0-100.0) fL RDW 15.8 H (11.5-15.5) % Chloride (98-107) mmol/L Glucose 133 H (74-99) mg/dL AST 396 H (14-36) U/L ALT 296 H (4-34) U/L Alkaline Phosphatase 239 H (38-126) U/L Albumin (3.5-5.0) g/dL Urine Appearance Cloudy H (Clear) Urine Protein Trace H (Negative) Urine Blood Small H (Negative) Ur Leukocyte Esterase Large H (Negative) Urine RBC 19 H (0-5) /hpf Ur Squamous Epith Cells 18 H (0-4) /hpf Calcium Oxalate Crystal Many H (None) /hpf Urine Bacteria Many H (None) /hpf Urine Mucus Many H (None) /hpf Urine Yeast (Budding) Occasional H (None) /hpf 08/31/20 Range/Units 05:49 Hgb (11.4-16.0) gm/dL MCV (80.0-100.0) fL RDW (11.5-15.5) % Chloride 111 H (98-107) mmol/L Glucose 110 H (74-99) mg/dL AST 479 H (14-36) U/L ALT 319 H (4-34) U/L Alkaline Phosphatase 233 H (38-126) U/L Albumin 3.3 L (3.5-5.0) g/dL Urine Appearance (Clear) Urine Protein (Negative) Urine Blood (Negative) Ur Leukocyte Esterase (Negative) Urine RBC (0-5) /hpf Ur Squamous Epith Cells (0-4) /hpf Calcium Oxalate Crystal (None) /hpf Urine Bacteria (None) /hpf Urine Mucus (None) /hpf Urine Yeast (Budding) (None) /hpf
--- NOTE | 2020-08-31 15:31 | MR ---
MR liver with and without contrast, MRCP multiplanar multisequence and postcontrast images through the liver following 11 cc Gadavist IV. Thre e-dimensional reconstructions were performed in the biliary system. Correlation to ultrasound abdomen 08/30/2020 There is some signal drop on out of phase imaging within the liver which may be indicative of hepatic steatosis. The liver is enlarged. T2 bright foci are present within the liver, anterior lesion is T1 hypointense and does not enhance and measures approximately 3 cm in AP dimension and likely represen ts a cyst, possible internal septation, posteriorly lesion is T1 bright on postcontrast images and sh ows a somewhat lobular contour, precontrast images T1 hypointense, postcontrast images remain unchang ed over time. The gallbladder shows multiple dependent calculi. There is low signal present within the distal commo n bile duct consistent with choledocholithiasis, axial image 20 222 data set, coronal image #18, and bile duct shows a dilated appearance as noted on ultrasound. There is no ascites. No retroperitoneal adenopathy. Aorta is not dilated. Kidneys are within normal l imits retrocaval left renal vein noted incidentally. Adrenal glands show no mass. Lung bases show no pleural effusion. Spleen is not enlarged. Pancreas is within normal limits. IMPRESSION: Choledocholithiasis, cholelithiasis. Common bile duct dilation. Probable hepatic steatosi s, there is hepatomegaly. Probable flash hemangioma within the posterior right lobe of the liver, fol low-up could be performed to assess for stability.
[2020-08-31] MEDS ORDERED: HEPARIN SODIUM,PORCINE/PF 5,000 UNIT/0.5 ML SYRINGE SQ SCH (21:00)
[2020-09-01 05:13] LABS: Prothrombin Time 10.8 sec (9.0-12.0)
[2020-09-01 05:20] LABS: ALT 269 U/L (4-34); AST 202 U/L (14-36); African American GFR (CKD) >90 (>60 ml/min/1.73 sqM); Albumin 3.3 g/dL (3.5-5.0); Alkaline Phosphatase 229 U/L (38-126); Anion Gap 6 mmol/L; Blood Urea Nitrogen 5 mg/dL (7-17); Calcium 8.7 mg/dL (8.4-10.2); Carbon Dioxide 22 mmol/L (22-30); Chloride 111 mmol/L (98-107); Glucose 84 mg/dL (74-99); Non-African American GFR(CKD) >90 (>60 ml/min/1.73 sqM); Potassium 4.2 mmol/L (3.5-5.1); Sodium 139 mmol/L (137-145); Total Bilirubin 0.8 mg/dL (0.2-1.3); Total Protein 6.3 g/dL (6.3-8.2)
[2020-09-01] MEDS: PIPERACILLIN-TAZOBACTAM 3.375 GM in SODIUM CHLORIDE 0.9% 100 ML IVPB SCH ×3 (06:22→22:33)
[2020-09-01] MEDS: PANTOPRAZOLE 40 MG/10 ML VIAL IVP SCH (07:42)
[2020-09-01] MEDS: ENOXAPARIN 40 MG/0.4 ML SYRINGE SQ SCH (07:42)
[2020-09-01] MEDS: SERTRALINE 50 MG TAB PO SCH (07:42)
[2020-09-01] MEDS: INDOMETHACIN 50MG SUPPOSITORY RECTAL ONE ×2 (11:45→12:25)
[2020-09-01] MEDS ORDERED: IV FLUID CONTINUATION 1,000 ML IV ONE (12:09)
--- NOTE | 2020-09-01 12:27 | P.PN ---
Subjective Progress Note Date: 09/01/20 CHIEF COMPLAINT: Abdominal pain HISTORY OF PRESENT ILLNESS: Patient with evidence of choledocholithiasis. Patient denies any abdominal pain. Denies any nausea or vomiting. She had MRCP completed yesterday that showed choledocholithiasis, cholelithiasis. Common bile duct dilation. Probable hepatic steatosis, there is hepatomegaly. Probable flash hemangioma within the posterior right lobe of the liver. Patient scheduled for ERCP today. She is afebrile. Her LFTs are trending downwards. Total bilirubin remains normal PHYSICAL EXAM: VITAL SIGNS: Reviewed. GENERAL: Well-developed in no acute distress. HEENT: No sclera icterus. Extraocular movements grossly intact. Moist buccal mucosa. Head is atraumatic, normocephalic. ABDOMEN: Soft. Nondistended. Nontender. NEUROLOGIC: Alert and oriented. Cranial nerves II through XII grossly intact. ASSESSMENT: 1. Right upper quadrant abdominal pain with possible cholecystitis 2. Cholelithiasis 3. Choledocholithiasis 4. Elevated LFTs PLAN: -Patient scheduled for ERCP today with GI service -We'll plan for laparoscopic cholecystectomy outpatient -Continue antibiotics -Await further recommendations per GI service -Anticipate discharge possibly tomorrow Physician Azure Architect note has been reviewed by physician. Signing provider agrees with the documented findings, assessment, and plan of care. Objective - Vital Signs Vital signs: Vital Signs Temp 97.6 F 09/01/20 12:11 Pulse 65 09/01/20 12:11 Resp 16 09/01/20 12:11 BP 144/67 09/01/20 12:11 Pulse Ox 98 09/01/20 12:11 Intake & Output 08/31/20 09/01/20 09/01/20 18:59 06:59 18:59 Intake Total 1550 Balance 1550 Intake: Intake, IV Titration 850 Amount Piperacillin-Tazobactam 3 100 .375 gm In Sodium Chloride 0.9% 100 ml @ 25 mls/hr IVPB Q8H JIMMIE Rx#: [id number] Sodium Chloride 0.9% 1, 750 000 ml @ 75 mls/hr IV . [id number] JIMMIE Rx#:[id number] Oral 700 Other: # Voids 3 2 - Labs CBC & Chem 7: 08/30/20 20:34 09/01/20 04:54 Labs: Abnormal Lab Results - Last 24 Hours (Table) 09/01/20 Range/Units 04:54 Chloride 111 H (98-107) mmol/L BUN 5 L (7-17) mg/dL AST 202 H (14-36) U/L ALT 269 H (4-34) U/L Alkaline Phosphatase 229 H (38-126) U/L Albumin 3.3 L (3.5-5.0) g/dL Microbiology - Last 24 Hours (Table) 08/30/20 11:10 Blood Culture - Preliminary Blood No Growth after 24 hours
[2020-09-01] MEDS ORDERED: fentaNYL (PF) 50 MCG/ML 2 ML AMP ONE (13:19)
[2020-09-01] MEDS ORDERED: ePHEDrine SULFATE/0.9% NACL/PF 50 MG/5 ML SYRINGE IV ONE (13:19)
[2020-09-01] MEDS ORDERED: GLYCOPYRROLATE 0.2 MG/ML 2 ML VIAL ONE (13:19)
[2020-09-01] MEDS ORDERED: PROPOFOL 10 MG/ML 20 ML VIAL IV ONE (13:19)
[2020-09-01] MEDS ORDERED: LIDOCAINE 1% INJ 10MG/ML (20 ML MDV) ONE (13:19)
[2020-09-01] MEDS ORDERED: MIDAZOLAM 2 MG/2 ML VIAL ONE (13:19)
[2020-09-01] MEDS ORDERED: SUCCINYLCHOLINE CHLORIDE 100 MG/5 ML SYR IV ONE (13:19)
[2020-09-01] MEDS ORDERED: IOPAMIDOL-300 50ML BTL MISCELLANE ONE (14:02)
--- NOTE | 2020-09-01 14:35 | P.PCN ---
Date of Procedure: 09/01/20 Description of Procedure: Brief history: 40-year-old white female who presented to the emergency department yesterday evening with complaints of right upper quadrant pain radiating to her back. Patient states that the pain started on Saturday in the evening after eating dinner, resolved but then returned the next couple days. Yesterday the pain was very intense, associated with nausea but no vomiting and she presented to the emergency department. The patient denies any past medical history. Denies any previous liver disease or known elevation in her liver enzymes. No previous problems with her gallbladder. On admission labs were WBC 9, hemoglobin 11.3, hematocrit 34.5, platelet count 369,000, total bilirubin 1.0, alkaline phosphatase 239, AST 396, ALT 296. Today's labs there was a slight increase in her LFTs, total bilirubin 1.2, alkaline phosphatase 233, AST 479, ALT 319. As part of her workup she had an ultrasound of the gallbladder showing multiple gallstones, no dilated ducts, intrahepatic duct not dilated. CBD large and consistent with gallbladder dysfunction. CBD measuring 1.10 cm. Liver appears enlarged and coarse echotexture. Increase echogenicity complex area seen within the right lobe measuring 2.1 x 2.7 x 1.8 cm and reported as a 2.7 cm anterior cyst. She subsequently had MRCP which confirmed cholelithiasis, dilated CBD, hepatic steatosis as well as choledocholithiasis and is scheduled for ERCP for treatment. Procedure performed: ERCP with cholangiogram, sphincterotomy in balloon sweep/extraction of CBD stones Preoperative diagnoses: Choledocholithiasis, abdominal pain, elevated liver enzymes IV sedation per anesthesia: Estimated blood loss: Minimal. Procedure: After informed consent was obtained from the patient and after the risks benefits and complications including bleeding perforation and pancreatitis explained in detail the patient was brought into the endoscopy unit. The patient was placed in prone position and IV conscious sedation was administered by anesthesia under continuous monitoring. The Olympus side-viewing duod enoscope was then inserted into the mouth and esophagus intubated without any difficulty. The scope was gradually advanced into the stomach and duodenum. The major papilla was identified without any difficulty. An autotome was used to cannulate the papilla and a wire was passed into the CBD and to the common hepatic duct. Dye was then injected into the duct and cholangiogram was significant for a diffusely dilated CBD without any definitive filling defect. A sphincterotome was then used to make a 10 mm sphincterotomy. Exchange over the wire was then made for a balloon extractor which was used to serially sweep the duct after being inflated to 11.5 mm and 15 mm. Balloon sweep was significant for a small CBD stone. The pancreatic duct was not injected or cannulated. The patient tolerated the procedure well. Impression: ERCP with cholangiogram, sphincterotomy and balloon sweep of the CBD productive of a small CBD stone Recommendations: The findings of this examination were discussed with the patient as well as a family/mother. Okay for full liquid diet. Continue to monitor CBC, BMP, LFTs. Continue antibiotic therapy. Defer timing of cholecystectomy to the surgical service was following the patient.
[2020-09-01 15:10] VITALS: RESP 18
[2020-09-01] MEDS: SODIUM CHLORIDE 0.9% 1,000 ML IV SCH (15:34)
--- NOTE | 2020-09-01 16:52 | P.PN ---
Subjective Patient is pleasant [age]-year-old female came in with compensative right upper quadrant abdominal pain he started eating high fatty foods like pizza last weekend found to have cholelithiasis with multiple gallstones never had similar symptoms in the past patient doesn't have any leukocytosis doesn't have any fever. Patient's Gamez's sign is negative patient had an ultrasound of the gallbladder which showed multiple gallstones no dilated bile duct intrahepatic bile duct is not dilated although CBD is large with gallbladder distention. CBD is about 1.1 cm patient has mildly elevated liver enzymes all the balloon is only 1.2. Patient will undergo cholecystectomy but before that need to rule out common bile duct stones since the possibility is low patient will undergo MRCP instead of ERCP further management depending on MRCP. Patient is presently on Zosyn as per general surgery. Her right upper quadrant abdominal pain is severe crampy radiating to the back presently significantly improved with morphine 09/01/2020 Patient had MRCP which showed significant choledocholithiasis because of which patient will undergo ERCP today patient's abdominal pain improved Constitutional: Denied any fatigue denied any fever. Cardio vascular: denied any chest pain, palpitations Gastrointestinal denied any nausea vomiting Pulmonary: Denied any shortness of breath cough Neurologic denied any new focal deficits All inpatient medications were reviewed and appropriate changes in these medications as dictated in the interval history and assessment and plan. PHYSICAL EXAMINATION: GENERAL: The patient is alert and oriented x3, not in any acute distress. Well developed, well nourished. HEENT: Pupils are round and equally reacting to light. EOMI. No scleral icterus. No conjunctival pallor. Normocephalic, atraumatic. No pharyngeal erythema. No thyromegaly. CARDIOVASCULAR: S1 and S2 present. No murmurs, rubs, or gallops. PULMONARY: Chest is clear to auscultation, no wheezing or crackles. ABDOMEN: Soft, nontender, nondistended, normoactive bowel sounds. No palpable organomegaly. MUSCULOSKELETAL: No joint swelling or deformity. EXTREMITIES: No cyanosis, clubbing, or pedal edema. NEUROLOGICAL: Gross neurological examination did not reveal any focal deficits. SKIN: No rashes. Assessment and plan -Cholelithiasis and choledocholithiasis for which patient will undergo ERCP followed by cholecystectomy. Liver enzymes are improving -Possible choledocholithiasis patient will undergo ERCP -Depression: Patient will be resumed on sertraline -Elevated liver enzymes secondary to possibly passed gallstone rather than choledocholithiasis DVT prophylaxis: Lovenox Objective - Vital Signs Vital signs: Vital Signs Temp 98.1 F 09/01/20 15:50 Pulse 68 09/01/20 16:35 Resp 18 09/01/20 16:35 BP 136/80 09/01/20 16:35 Pulse Ox 100 09/01/20 16:35 Intake & Output 08/31/20 09/01/20 09/01/20 18:59 06:59 18:59 Intake Total 1550 750 Balance 1550 750 Intake: IV 750 Intake, IV Titration 850 Amount Piperacillin-Tazobactam 3 100 .375 gm In Sodium Chloride 0.9% 100 ml @ 25 mls/hr IVPB Q8H JIMMIE Rx#: [id number] Sodium Chloride 0.9% 1, 750 000 ml @ 75 mls/hr IV . [id number] JIMMIE Rx#:[id number] Oral 700 Other: # Voids 3 2 1 - Labs CBC & Chem 7: 08/30/20 20:34 09/01/20 04:54 Labs: Abnormal Lab Results - Last 24 Hours (Table) 09/01/20 Range/Units 04:54 Chloride 111 H (98-107) mmol/L BUN 5 L (7-17) mg/dL AST 202 H (14-36) U/L ALT 269 H (4-34) U/L Alkaline Phosphatase 229 H (38-126) U/L Albumin 3.3 L (3.5-5.0) g/dL Microbiology - Last 24 Hours (Table) 08/30/20 11:10 Blood Culture - Preliminary Blood No Growth after 24 hours
[2020-09-01] MEDS: FLUCONAZOLE 100 MG TAB PO SCH (22:33)
[2020-09-02] MEDS: PIPERACILLIN-TAZOBACTAM 3.375 GM in SODIUM CHLORIDE 0.9% 100 ML IVPB SCH (06:11)
[2020-09-02] MEDS: ENOXAPARIN 40 MG/0.4 ML SYRINGE SQ SCH (08:32)
[2020-09-02] MEDS: PANTOPRAZOLE 40 MG/10 ML VIAL IVP SCH (08:32)
--- NOTE | 2020-09-02 08:32 | P.DS ---
Providers Date of admission: 09/01/20 12:01 Expected date of discharge: 09/02/20 Attending physician: Jagjit Frye Consults: 08/31/20 08:40 Consult Physician Routine Consulting Provider: Daniel Armando Consult Reason/Comments: ercp Do you want consulting provider notified?: Yes 08/31/20 11:00 Consult Physician Routine Consulting Provider: Mila Brandt Consult Reason/Comments: medical management Do you want consulting provider notified?: Yes Primary care physician: Alcides Dum[facility] Course: This is a 40-year-old female who was admitted to hospital with abdominal pain. Patient's found have evidence of choledocholithiasis. She underwent ERCP. patient was discharged and scheduled for outpatient laparoscopic cholecystectomy. Procedures: ERCP Patient Condition at Discharge: Serious Plan - Discharge Summary New Discharge Prescriptions: No Action Cephalexin [Keflex] 500 mg PO Q6HR Phentermine HCl 37.5 mg PO DAILY Ibuprofen [Motrin Ib] 800 mg PO Q8H PRN PRN Reason: Pain Sertraline HCl [Zoloft] 50 mg PO DAILY Discharge Medication List Cephalexin [Keflex] 500 mg PO Q6HR 08/30/20 [History] Ibuprofen [Motrin Ib] 800 mg PO Q8H PRN 08/30/20 [History] Phentermine HCl 37.5 mg PO DAILY 08/30/20 [History] Sertraline HCl [Zoloft] 50 mg PO DAILY 08/30/20 [History] Follow up Appointment(s)/Referral(s): Tim Mcgrath MD [Primary Care Provider] - 1-2 days Activity/Diet/Wound Care/Special Instructions: Patient to be nothing by mouth after midnight on Saturday night Laparoscopically cystectomy scheduled for Saturday morning Discharge Disposition: HOME SELF-CARE
[2020-09-02] MEDS: SERTRALINE 50 MG TAB PO SCH (08:33)
[2020-09-02] MEDS: FLUCONAZOLE 100 MG TAB PO SCH (08:33)
[2020-09-02] MEDS: SODIUM CHLORIDE 0.9% 1,000 ML IV SCH (08:37)
[2020-09-02 08:52] VITALS: BP 118/79; PULSE 68; TEMP 98.6
--- NOTE | 2020-09-02 09:06 | FL ---
Fluoroscopy HISTORY: Choledocholithiasis 13 seconds fluoroscopy time supplied to the referring clinician. 3 intraoperative C-arm images docum ent the procedure. See dictated report from gastroenterology.
--- NOTE | 2020-09-02 15:09 | P.PN ---
Subjective Patient is pleasant [age]-year-old female came in with compensative right upper quadrant abdominal pain he started eating high fatty foods like pizza last weekend found to have cholelithiasis with multiple gallstones never had similar symptoms in the past patient doesn't have any leukocytosis doesn't have any fever. Patient's Gamez's sign is negative patient had an ultrasound of the gallbladder which showed multiple gallstones no dilated bile duct intrahepatic bile duct is not dilated although CBD is large with gallbladder distention. CBD is about 1.1 cm patient has mildly elevated liver enzymes all the balloon is only 1.2. Patient will undergo cholecystectomy but before that need to rule out common bile duct stones since the possibility is low patient will undergo MRCP instead of ERCP further management depending on MRCP. Patient is presently on Zosyn as per general surgery. Her right upper quadrant abdominal pain is severe crampy radiating to the back presently significantly improved with morphine 09/01/2020 Patient had MRCP which showed significant choledocholithiasis because of which patient will undergo ERCP today patient's abdominal pain improved 09/02/2020 Patient is clinically doing well tolerating diet well is being discharged today with the general surgery follow-up as outpatient for cholecystectomy. Patient had ERCP sphincterotomy and CBD stone removal Constitutional: Denied any fatigue denied any fever. Cardio vascular: denied any chest pain, palpitations Gastrointestinal denied any nausea vomiting Pulmonary: Denied any shortness of breath cough Neurologic denied any new focal deficits All inpatient medications were reviewed and appropriate changes in these medications as dictated in the interval history and assessment and plan. PHYSICAL EXAMINATION: GENERAL: The patient is alert and oriented x3, not in any acute distress. Well developed, well nourished. HEENT: Pupils are round and equally reacting to light. EOMI. No scleral icterus. No conjunctival pallor. Normocephalic, atraumatic. No pharyngeal erythema. No thyromegaly. CARDIOVASCULAR: S1 and S2 present. No murmurs, rubs, or gallops. PULMONARY: Chest is clear to auscultation, no wheezing or crackles. ABDOMEN: Soft, nontender, nondistended, normoactive bowel sounds. No palpable organomegaly. MUSCULOSKELETAL: No joint swelling or deformity. EXTREMITIES: No cyanosis, clubbing, or pedal edema. NEUROLOGICAL: Gross neurological examination did not reveal any focal deficits. SKIN: No rashes. Assessment and plan -Cholelithiasis and choledocholithiasis for which she and had ERCP and common bile duct stone removal improving liver enzymes, outpatient cholecystectomy -Possible choledocholithiasis -Depression: Patient will be resumed on sertraline -Elevated liver enzymes secondary to possibly passed gallstone rather than choledocholithiasis Objective - Vital Signs Vital signs: Vital Signs Temp 98.6 F 09/02/20 08:25 Pulse 68 09/02/20 08:25 Resp 18 09/02/20 08:25 BP 118/79 09/02/20 08:25 Pulse Ox 96 09/02/20 08:25 Intake & Output 09/01/20 09/02/20 09/02/20 18:59 06:59 18:59 Intake Total 1740 Balance 1740 Intake: IV 750 Intake, IV Titration 750 Amount Sodium Chloride 0.9% 1, 750 000 ml @ 75 mls/hr IV . [id number] JIMMIE Rx#:[id number] Oral 240 Other: # Voids 1 1 1 - Labs CBC & Chem 7: 08/30/20 20:34 09/01/20 04:54 Labs: Microbiology - Last 24 Hours (Table) 08/30/20 11:10 Blood Culture - Preliminary Blood No Growth after 48 hours
== END 2020-09-02 13:10 | disposition home or self-care (01) ==
LOC: EC 19:56 → 6PED 22:22 → OBSVTOIN 09-01 12:01 → INTOOBSV 09-01 12:01 → UNDODISIN 09-02 13:10
PROVIDERS: ADMIT Surgery; ATTEND Surgery
DX: K80.64 Calculus of gallbladder and bile duct with chronic cholecystitis without obstruction (principal); K76.89 Other specified diseases of liver; R79.89 Other specified abnormal findings of blood chemistry; F32.9 Major depressive disorder, single episode, unspecified; F41.9 Anxiety disorder, unspecified; K76.0 Fatty (change of) liver, not elsewhere classified; Z79.899 Other long term (current) drug therapy
CPT/HCPCS: 43262; 43264; 99285; 96361 ×2; 96366; 96365; 96375; 36415; 81025 ×2; 80053 ×3; 83605; 83690; 85025; 85610; 81001; 87040; 74330; 76705; 74183; G0378 ×5; J2543 ×4; J2250; J2270; J2405; J2001; J1650 ×2; J3010; J0330; J2704; C9113 ×3; A9585; Q9967; J1644; C1769; 96374

== ENCOUNTER 2020-09-05 08:17 | Day surgery (SDC) | payer OTHER ==
[~2020-09-05 08:17] MED LIST: DEXAMETHASONE SOD PHOSPHATE 4 MG/ML 1 ML VIAL IV ONE; HYDROmorphone 0.5 MG/0.5 ML SYRINGE IVP PRN; KETOROLAC 15 MG/ML 1 ML VIAL IVP PRN; KETOROLAC 15 MG/ML 1 ML VIAL IVP SCH; LACTATED RINGERS 1,000 ML IV SCH; LIDOCAINE 1% (10MG/ML) FOR IV START INTRADERMA PRN; METOCLOPRAMIDE 5 MG/ML 2 ML VIAL IVP PRN; MIDAZOLAM 2 MG/2 ML VIAL IV PRN; ONDANSETRON 4 MG/2 ML VIAL IVP ONE; ONDANSETRON 4 MG/2 ML VIAL IVP PRN; SCOPOLAMINE 1.5MG/72HR PATCH TRANSDERM ONE; fentaNYL (PF) 50 MCG/ML 2 ML AMP IVP PRN
[2020-09-05] MEDS ORDERED: HEPARIN SODIUM,PORCINE/PF 5,000 UNIT/0.5 ML SYRINGE SQ ONE (08:50)
[2020-09-05] MEDS ORDERED: ACETAMINOPHEN TAB 500 MG TAB ONE (09:26)
[2020-09-05] MEDS ORDERED: HEPARIN SODIUM,PORCINE 5,000 UNIT/ML 1 ML VIAL SQ ONE (09:29)
[2020-09-05] MEDS ORDERED: ACETAMINOPHEN TAB 500 MG TAB PO ONE (09:29)
--- NOTE | 2020-09-05 09:33 | P.GSHP ---
History of Present Illness H&P Date: 09/05/20 Chief Complaint: History of gallstone pancreas Is a 40-year-old female who underwent recent ERCP to remove remove a common bile duct stone. Patient presents today for laparoscopic cholecystectomy Past Medical History Past Medical History: No Reported History Additional Past Medical History / Comment(s): Current Gallstones. History of Any Multi-Drug Resistant Organisms: None Reported Past Surgical History: Section, Ear Surgery Additional Past Surgical History / Comment(s): D&C. Past Anesthesia/Blood Transfusion Reactions: No Reported Reaction Past Psychological History: ADD/ADHD, Anxiety Additional Psychological History / Comment(s): ADD. Smoking Status: Never smoker Past Alcohol Use History: Rare Past Drug Use History: None Reported - Past Family History Mother Family Medical History: Thyroid Disorder Additional Family Medical History / Comment(s): Low blood sugar. Medications and Allergies Home Medications Medication Instructions Recorded Confirmed Type Phentermine HCl 37.5 mg PO DAILY 08/30/20 09/02/20 History Sertraline HCl [Zoloft] 50 mg PO QAM 08/30/20 09/02/20 History Ondansetron [Zofran] 4 mg PO Q8HR PRN 3 Days #9 tab 09/02/20 09/05/20 Rx Allergies Allergy/AdvReac Type Severity Reaction Status Date / Time No Known Allergies Allergy Verified 09/05/20 08:42 Surgical - Exam Vital Signs Temp Pulse Resp BP Pulse Ox 97.7 F 73 16 136/58 98 09/05/20 08:55 09/05/20 08:55 09/05/20 08:55 09/05/20 08:55 09/05/20 08:55 - General well developed, well nourished, no distress - Eyes PERRL - ENT normal pinna - Neck no masses - Respiratory normal expansion - Cardiovascular Rhythm: regular - Abdomen Abdomen: soft, non tender Assessment and Plan Assessment: Cholelithiasis We'll perform laparoscopic cholecystectomy
[2020-09-05] MEDS ORDERED: MIDAZOLAM 2 MG/2 ML VIAL ONE (09:44)
[2020-09-05] MEDS ORDERED: NEOSTIGMINE 1 MG/ML 10 ML VIAL ONE (09:44)
[2020-09-05] MEDS ORDERED: ROCURONIUM 10 MG/ML (5 ML VIAL) IV ONE (09:44)
[2020-09-05] MEDS ORDERED: KETOROLAC 15 MG/ML 1 ML VIAL ONE (09:44)
[2020-09-05] MEDS ORDERED: SUCCINYLCHOLINE CHLORIDE 100 MG/5 ML SYR IV ONE (09:44)
[2020-09-05] MEDS ORDERED: BUPIVACAINE (PF) 0.5% 30 ML VIAL SQ ONE (09:44)
[2020-09-05] MEDS ORDERED: PROPOFOL 10 MG/ML 20 ML VIAL IV ONE (09:44)
[2020-09-05] MEDS ORDERED: LIDOCAINE 1% INJ 10MG/ML (20 ML MDV) ONE (09:44)
[2020-09-05] MEDS ORDERED: fentaNYL (PF) 50 MCG/ML 2 ML AMP ONE (09:44)
[2020-09-05] MEDS ORDERED: GLYCOPYRROLATE 0.2 MG/ML 2 ML VIAL ONE (09:44)
[2020-09-05] MEDS ORDERED: SODIUM CHLORIDE 0.9% 50 ML with ceFAZolin 2,000 MG IV ONE ×2 (09:46)
[2020-09-05 10:32] VITALS: TEMP 98.2
--- NOTE | 2020-09-05 10:33 | P.OP ---
Date of Procedure: 09/05/20 Preoperative Diagnosis: Cholelithiasis Postoperative Diagnosis: Cholelithiasis Procedure(s) Performed: Laparoscopic cholecystectomy Anesthesia: ANAYA Surgeon: Jagjit Frye Estimated Blood Loss (ml): 5 Pathology: other (Gallbladder) Condition: stable Disposition: PACU Description of Procedure: The patient was placed on the operating table. The patient received a general endotracheal tube anesthesia. The patients abdomen was prepped and draped in the usual sterile fashion. Through an infraumbilical stab incision, the fascia of the anterior abdominal wall was grasped with a pair of Kochers and then the Veress needle was placed in the peritoneal cavity. Position of the Veress needle was confirmed with positive drop test. The abdomen was then insufflated. After adequate insufflation, the 10 mm trocar was placed in the peritoneal cavity. Following this the laparoscope was placed in the peritoneal cavity. The patient was placed in the head-up, right side up position and then a 5 mm trocar was placed in the right lateral and right subcostal position under direct visualization. A 8 mm trocar was placed in the epigastric position. The gallbladder was grasped in the fundus and infundibulum. Traction on the gallbladder was placed in the lateral and the cephalad positions. The triangle of Calot was visualized.. The cystic duct was bluntly dissected until the union of the cystic duct and common bile duct was seen. A critical view of safety was achieved. The cystic duct was then divided and sealed with the Harmonic scissors. A PDS Endoloop was then placed throughout the cystic duct stump. The cystic artery divided and sealed with the Harmonic scissors. The gallbladder was then removed from the liver bed using Harmonic scissors. The gallbladder was then extracted through the epigastric port site. Operative field was checked for any bleeding spots and Harmonic scissors was used to coagulate the liver bed. The abdomen was irrigated. The trocars were removed. The skin was closed using interrupted 3-0 Vicryl suture. Dermabond dressing were applied. The patient tolerated the procedure well.
[2020-09-05 11:39] VITALS: BP 127/78; PULSE 86; RESP 18
== END 2020-09-05 12:14 | disposition home or self-care (01) ==
LOC: OR 08:17
PROVIDERS: ATTEND Surgery
DX: K80.10 Calculus of gallbladder with chronic cholecystitis without obstruction (principal); F90.9 Attention-deficit hyperactivity disorder, unspecified type; F41.9 Anxiety disorder, unspecified; Z79.899 Other long term (current) drug therapy
CPT/HCPCS: 81025; 88304; 47562; J2250; J1644; J1100; J2710; J2405; J0690; J2001; J3010; J1885; J0330; J2704

== ENCOUNTER → 2024-01-20 | Outpatient (CLI) | payer OTHER ==
--- NOTE | 2024-01-20 16:01 | US ---
EXAMINATION TYPE: US pelvis complete transvag DATE OF EXAM: 01/20/2024 COMPARISON: 08/30/2020 CLINICAL INDICATION: Female, 43 years old with history of R10.2 FEMALE PELVIC PAIN; Night sweats and hot flashes TECHNIQUE: Transvaginal (TV) and Transabdominal (TA) . Transabdominal grayscale sonographic images of the pelvis were acquired. Transvaginal sonographic im ages were medically necessary to better assess the following anatomy: Doppler imaging: Not performed. FINDINGS: Date of LMP: 01/02/2024 EXAM MEASUREMENTS: Uterus: 9.9 x 5.9 x 8.0 cm Endometrial Stripe: 1.4 cm Right Ovary: 3.9 x 2.3 x 3.3 cm Left Ovary: 3.6 x 2.6 x 2.9 cm 1. Uterus: Retroflexed; Heterogenous area right uterine body = 2.4 x 2.6 x 1.9 cm 2. Endometrium: Echogenic area within = 1.4 x 1.1 x 0.9 cm 3. Right Ovary: wnl 4. Left Ovary: wnl 5. Bilateral Adnexa: wnl 6. Posterior cul-de-sac: wnl IMPRESSION: 1. Hyperechoic lesion within the endometrium suspicious for submucosal fibroid versus polyp measurin g up to 8 mm. 2. Endometrium within normal limits for thickness. 3. Fibroid uterus. [facility], , 01/20/2024 3:59 PM
== END | disposition home or self-care (01) ==
LOC: RADUSWWP 15:14
PROVIDERS: ATTEND Family Medicine
DX: D25.9 Leiomyoma of uterus, unspecified (principal); N93.9 Abnormal uterine and vaginal bleeding, unspecified; R10.2 Pelvic and perineal pain
CPT/HCPCS: 76830; 76856